=== PATIENT | female | born 2005 | race Caucasian/White ===

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

== ENCOUNTER 2024-01-19 19:01 | Emergency (ER) | payer OTHER, SELFPAY ==
[2024-01-19 19:12] VITALS: BP 142/80; PULSE 80; RESP 18; TEMP 36.5; O2SAT 100
--- NOTE | 2024-01-19 19:16 | ED.GENADULT ---
HPI - General Adult General Chief complaint: Upper Respiratory Infection Stated complaint: cough,sneeze,sinus pressure,headache Time Seen by Provider: 01/19/24 19:16 Source: patient Mode of arrival: ambulatory Limitations: no limitations History of Present Illness HPI narrative: 18-year-old female patient presents to the [facility] with complaints of cold symptoms for the past 2 days. Patient states she has had severe congestion, runny nose, cough and just overall not feeling well. Denies fevers that she is aware of but states she has had some body aches and chills. Related Data Home Medications Medication Instructions Recorded Confirmed drospirenone 3 mg-ethinyl 1 tablet PO DAILY 11/03/21 01/19/24 estradiol 0.02 mg tablet escitalopram oxalate 20 mg tablet 20 mg PO DAILY 01/19/24 01/19/24 fexofenadine 180 mg tablet 180 mg PO DAILY 01/19/24 01/19/24 Allergies Allergy/AdvReac Type Severity Reaction Status Date / Time peanut Allergy Severe ANAPHALAXIS Verified 01/19/24 19:07 loratadine [From Claritin] AdvReac Mild Rash Verified 01/19/24 19:07 Penicillins AdvReac Mild HIVES/ITCHI Verified 01/19/24 19:07 NG PEANUT BUTTER Allergy Severe ANAPHYLAXIS Uncoded 01/19/24 19:07 PECANS Allergy Severe ANAPHYLAXIS Uncoded 01/19/24 19:07 Review of Systems Review of Systems: CONSTITUTIONAL: Denies fever, Positive body aches and chills, or sweats. EYES: Denies visual changes, redness, or discharge. ENT: positive rhinorrhea, congestion, sore throat, and otalgia. CARDIOVASCULAR: Denies chest pain, palpitations, or edema. RESPIRATORY: positive cough denies dyspnea. GASTROINTESTINAL: Denies abdominal pain, nausea, vomiting, or diarrhea. GENITOURINARY: Denies dysuria or hematuria. SKIN: Denies rash or itching. MUSCULOSKELETAL: Denies back pain, joint pain, or myalgia. NEUROLOGIC: Denies headache, numbness, or weakness. PSYCHIATRIC: Denies anxiety or depression. [facility] Past Medical History Medical History Eczema Surgical History Surgical History History of tonsillectomy and adenoidectomy Family History Family History Grandparent Hypertension Heart disease Social History Social History Smoking status: Never smoker Alcohol intake: never Substance use: never Living arrangements: with family Occupation/Education: student Gender identity (if verbalized by the patient): Female Comments At the time of my signature I agree with nursing past medical history, surgical, social, and family history. There is no relevant family history pertinent to the presenting complaint. Exam Narrative: GENERAL: ill-appearing, well-nourished, and in no acute distress. HEAD: Normocephalic, atraumatic. EYES: PERRLA and EOMI. ENT: Nares clear, no rhinorrhea or epistaxis. Mucous membranes moist. posterior pharynx with no erythema, tonsillar enlargement, exudates or lesions present. Bilateral TMs are clear no erythema or foreign bodies the canal. NECK: Supple. No lymphadenopathy CHEST: Clear to auscultation. No respiratory distress. HEART: Regular rate and rhythm. No murmur heard. Normal peripheral pulses. ABDOMEN: Soft, nontender, nondistended, normal active bowel sounds. EXTREMITIES: Normal range of motion. No edema. SKIN: Warm, dry, no rash. NEURO: No focal deficits. Alert and oriented x3. Course Course Level of Care: Express Care Visit Vital Signs Vital signs: Vital Signs Temperature 36.5 C 01/19/24 19:12 Pulse Rate 80 01/19/24 19:12 Respiratory Rate 18 01/19/24 19:12 Blood Pressure 142/80 H 01/19/24 19:12 Pulse Oximetry 100 01/19/24 19:12 Oxygen Delivery Room Air 01/19/24 19:12 Temperature 36.5 C 01/19/24 19:12 Pulse Rate 80 01/19/24 19:12 Respiratory Rate
== END 2024-01-19 19:23 | disposition home or self-care (01) ==
PROVIDERS: Emergency Provider Nurse Practitioner Family; PCP Physician Assistant
DX: U07.1 COVID-19 (principal)
CPT/HCPCS: 87426; 99212; G0463

== ENCOUNTER 2024-03-30 18:24 | Emergency (ER) | payer OTHER, SELFPAY ==
--- NOTE | ~2024-03-30 | XR_ITS ---
XR chest 2V Ordering provider: Rich Saul APRN History: 18 years Female with . cough/sob/chest tightness . Comparison: March 11, 2013 FINDINGS: MEDIASTINUM: The cardiac silhouette is not enlarged. LUNGS: No infiltrates, effusions or pneumothorax. Prominent markings in the perihilar and lower lobe areas suggestive of bronchiolitis. Early bronchopneumonia is not excluded. OTHER: No free air under the diaphragm. IMPRESSION: Bronchiolitis with possible early bronchopneumonia in the lower lobes. Reviewed, dictated and finalized at location A.
--- NOTE | 2024-03-30 18:25 | ED.CHESTPAIN ---
HPI - Chest Pain General Chief Complaint: Upper Respiratory Infection Stated Complaint: chest pain / SOB / cough Time Seen by Provider: 03/30/24 18:25 Source: patient Mode of arrival: ambulatory Limitations: no limitations History of Present Illness HPI narrative: Michelle is a 18-year-old female patient presenting to the clinic today with complaints of shortness of breath, cough, and chest tightness x3 days. She reports no known fever or chills. History of asthma when she was a child. Cough is productive but she does not know the color of the mucus. States she just stop smoking ?vaping? Related Data Home Medications Medication Instructions Recorded Confirmed drospirenone 3 mg-ethinyl 1 tablet PO DAILY 11/03/21 03/30/24 estradiol 0.02 mg tablet escitalopram oxalate 20 mg tablet 20 mg PO DAILY 01/19/24 03/30/24 fexofenadine 180 mg tablet 180 mg PO DAILY 01/19/24 03/30/24 Allergies Allergy/AdvReac Type Severity Reaction Status Date / Time peanut Allergy Severe ANAPHALAXIS Verified 03/30/24 18:35 loratadine [From Claritin] AdvReac Mild Rash Verified 03/30/24 18:35 Penicillins AdvReac Mild HIVES/ITCHI Verified 03/30/24 18:35 NG PEANUT BUTTER Allergy Severe ANAPHYLAXIS Uncoded 01/19/24 19:07 PECANS Allergy Severe ANAPHYLAXIS Uncoded 01/19/24 19:07 Review of Systems Review of Systems: Pertinent positives per HPI. Patient denies any fever, chills, rash, headache, visual changes, dizziness, palpitations, nausea, vomiting, diarrhea, constipation, abdominal pain, or any urinary issues. [facility] Past Medical History Medical History Eczema Surgical History Surgical History History of tonsillectomy and adenoidectomy Family History Family History Grandparent Hypertension Heart disease Social History Social History Smoking status: Never smoker Alcohol intake: never Substance use: never Living arrangements: with family Occupation/Education: student Gender identity (if verbalized by the patient): Female Comments At the time of my signature, I reviewed and agree with the nursing past medical, surgical, social, and family history. There is no relevant family history pertinent to the patient complaint. Exam Narrative: General: Well-developed, obese, in no apparent distress Head: Normocephalic, atraumatic Eyes: Pupils equally round and reactive to light bilaterally, EOM intact, sclera and conjunctive clear, no discharge, lids normal Ears: TMs intact and clear, ear canals clear, no drainage, grossly hearing normal. Nose: Nares patent, clear nasal discharge, no inflammation, no sinus tenderness. Mouth: Oral pharynx without lesions or masses, good dentition, MMM. Neck: Supple, trachea midline, no enlargement of anterior or posterior cervical nodes, no thyroid masses or goiter palpable. Cardio: Regular rate and rhythm, s1 and s2 normal, no murmur appreciated. Resp: Lung sounds diminished in the bases, no rhonchi, rales, wheezing or rubs Course Course Emergency Course: Portions of this record may have been created with voice recognition software. Level of Care: Express Care Visit Vital Signs Vital signs: Vital signs reviewed MDM - Chest Pain MDM Narrative Medical decision making narrative: At the time of visit patient is resting comfortably on the exam table. Patient appears to be nontoxic. Diagnostics: Chest x-ray shows bronchiolitis versus early bronchial pneumonia Plan: I suspect patient has bronchiolitis with possible early bronchopneumonia. Prescription for Levaquin, prednisone, and albuterol inhaler was sent to the pharmacy. Supportive measures were discussed with the patient and they voiced understanding discharge instructions and agrees to treatment plan.
[2024-03-30 18:35] VITALS: BP 132/67; PULSE 103; RESP 18; TEMP 36.4; O2SAT 100
== END 2024-03-30 19:11 | disposition home or self-care (01) ==
PROVIDERS: Emergency Provider Nurse Practitioner Family; PCP Physician Assistant
DX: J40 Bronchitis, not specified as acute or chronic (principal); J18.0 Bronchopneumonia, unspecified organism; Z87.891 Personal history of nicotine dependence
CPT/HCPCS: 71046; 99213; G0463

== ENCOUNTER 2024-10-22 08:10 | Emergency (ER) | payer OTHER, SELFPAY ==
--- OUTSIDE RECORDS SUMMARY | 2024-10-22 08:17 | XMS_ITS | Encounter Summary ---
Author Organization [facility] Address [address] [place] [address] Care Team Providers Care Traffic Workforce Representative Name Role Phone Imtiaz Bennett MD Primary Care Provider Encounter Details Date Type Department Care Team (Late st Contact Info) Description 01/15/2020 Telephone [facility] Pediatrics - [address] [address] Desi Valle MD [address] [place] [id number] Social History Tobacco Use Types Packs/Day Years Used Date Smoking Tobacco: Passive Smo ke Exposure - Never Smoker Smokeless Tobacco: Never Alcohol Use Standard Drinks/Week Comments No 0 (1 standard drink = 0.6 oz pur e alcohol) Comments No Sex and Gender Information Value Date Recorded Sex Assigned at Not on file Legal Sex Female 5:44 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 No / Unsure 12/31/2019 8:27 AM CDT documented as of this encounter Miscellaneous Notes * Telephone Encounter - Asim Jin - 01/15/2020 4:30 PM CDT Mom called back to confirm pt's Telemed appt this coming Thursday 01/18 at 12:[address] Valle. Called Mom back and confirmed. Informed her that instructions were sent to her 7/22, and they should detail everything she needs to know about setting up the appt. Mom expressed understanding. documented in this encounter Plan of Treatment Not on file documented as of this encounter Visit Diagnoses Not on filedocumented in this encounter Additional Health Concerns Infection Onset Date Last Indicated Resolved Time COVID-19 Under Investigation 02/22/2020 02/24/2020 02/24/2020 7:07 PM CDT documented as of this encounter Care Teams Traffic Workforce Representative Relationship Specialty Start Date End Date Imtiaz Bennett MD [address] [place] [id number] PCP - General Pediatrics 07/22/19 documented as of this encounter
--- OUTSIDE RECORDS SUMMARY | 2024-10-22 08:17 | XMS_ITS | Clinical Summary ---
Author Organization 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 Gender Identity Not on file Sexual Orientation Not on file Plan of Treatment Health Maintenance Due Date Last Done Comments Hepatitis C Virus (HCV) Screening 2004 Meningococcal B Immunization (1 of 2 - Standard) 2020 Influenza Immunization (#1) 02/10/202409/2019, 04/04/2017, 05/27/2014, Additional history exists SARS-COV-2 Immunization ( season) 2024 Respiratory Syncytial Virus (RSV) Immunization (Adult) (1 - 1-dose 75+ series) 12/20/2079 Hepatitis B Immunization Completed 006, 04/24/2005, 02/22/2005, Additional history exists Pneumococcal Immunization Combined Aged Out 01/29/2007, 06/22/2005, 04/24/2005, Additional history exists No longer eligible based on patient's age to complete this topic Hepatitis A Immunization Discontinued 12/10/2008, 12/10 Measles Mumps Rubella (MMR) Immunization Discontinued 02/01/2010, 01/29/2007 Polio (IPV) Immunization Discontinued 010, 06/22/2005, 04/24/2005, Additional history exists Varicella Immunization Discontinued 02/01/2010, 2005 DTaP/Tdap/Td Immunization Discontinued 2015, 02/01/2010, 01/29/2007, Additional history exists Human Papillomavirus (HPV) Immunization Completed 12/28/2015, 05/27/2014 Meningococcal Immunization (ACWY) Aged Out 12/28/2015 No longer eligible based on patient's age to complete this topic TdaP Immunization Completed 12/28/2015 Rotavirus Immunization Aged Out No lo nger eligible based on patient's age to complete this topic
--- OUTSIDE RECORDS SUMMARY | 2024-10-22 08:17 | XMS_ITS | Encounter Summary ---
Author Organization [facility] Address [address] [place] [address] Care Team Providers Care Sorting Machine Operator Name Role Phone Imtiaz Bennett MD Primary Care Provider [phone] Reason for Visit * Reason Onset Date Comments Scheduling 08/22/2021 Encounter Details Date Type Department Care Team (Late st Contact Info) Description 08/22/2021 Telephone [facility] Pediatrics - [address] [phone] Colin Garcia MD [address] [place] [phone] Scheduling Social History Tobacco Use Types Packs/Day Years Used Date Smoking Tobacco: Never Smokeless Tobacco: Never Alcohol Use Standard Drinks/Week Comments Not Asked 0 (1 standard drink = 0.6 oz pur e alcohol) Comments No Sex and Gender Information Value Date Recorded Sex Assigned at Not on file 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 Answer Date of Assessment Author No 02/26/2020 11:37 AM Crissy Reed RN * Is person blind or have serious difficulty seeing? Answer Date of Assessment Author No 02/26/2020 11:37 AM Crissy Reed RN * Does person have serious difficulty walking/climbing stairs? Answer Date of Assessment Author No 02/26/2020 11:37 AM Crissy Reed RN * Does person have difficulty dressing/bathing? Answer Date of Assessment Author No 02/26/2020 11:37 AM CDT Crissy Hoang RN * Does person have difficulty doing errands alone? Answer Date of Assessment Author No 02/26/2020 11:37 AM CDT Crissy Hoang RN documented as of this encounter Mental Status * Does person have difficulty concentrating/remembering/making decisions? Answer Entry Date Author No 02/26/2020 11:37 AM CDT Crissy Hoang RN documented in this encounter Miscellaneous Notes * Telephone Encounter - Bee Talamantes RN - 08/22/2021 10:31 AM CDT Mom called requesting an appointment. Appointment was for Bariatrics not GI. Forwarded mom to correct department. * Telephone Encounter - Jay Jay Holm - 08/22/2021 10:10 AM CDT Mom called asking why no one has called to schedule next appointment. There is no GI doctor on chart. Please call to find out what mom need to do. documented in this encounter Plan of Treatment Not on file documented as of this encounter Visit Diagnoses Not on filedocumented in this encounter Care Teams Sorting Machine Operator Relationship Specialty Start Date End Date Imtiaz Bennett MD [address] [place] [address] PCP - General Pediatrics 07/22/19 documented as of this encounter
--- OUTSIDE RECORDS SUMMARY | 2024-10-22 08:17 | XMS_ITS | Clinical Summary ---
Author Organization [facility] Address [address] [place] [address] Care Team Providers Care Staffing Specialist Name Role Phone Unavailable Primary Care Provider Unavailabl e Social History Tobacco Use Types Packs/Day Years Used Date Smoking Tobacco: Never Assessed Comments Unknown Sex and Gender Information Value Date Recorded Sex Assigned at Not on file Legal Sex Female 5:16 PM CDT Gender Identity Not on file Sexual Orientation Not on file Plan of Treatment Upcoming Encounters Date Type Department Care Team ([facility] Contact Info) Description 11/11/2024 1:00 PM CDT Office Visit [facility] - [place] [address] [place] [phone] Aggie Sandoval MD [address] [place] [phone] Health Maintenance Due Date Last Done Comments Annual Physical 12/20/2007 HPV Vaccines (1 - 3-dose series) 12/20/2019 Meningococcal B Vaccine (1 o f 2 - Standard) 2020 Hepatitis C 2022 DTaP, Tdap and Td Vaccines ( 1 - Tdap) 12/20/2023 Hepatitis B Vaccines (1 of 3 - 19+ 3-dose series) 12/20/2023 COVID-19 Vaccine ( - 2023-2 5 season) 2024 Meningococcal Vaccine Aged Out No sima sindi eligible based on patient's age to complete this topic Pneumococcal Vaccine: Pediat rics (0 to 5 Years) and At-Risk Patients (6 to 49 Years) Aged Out No longer eligible b ased on patient's age to complete this topic RSV Immunizations Under 20 Months Aged Out No longer eligible based on patient's age to complete this topic Insurance [employer]
--- OUTSIDE RECORDS SUMMARY | 2024-10-22 08:17 | XMS_ITS | Clinical Summary ---
Author Organization [facility] Address [address] [place] [address] Care Team Providers Care Paper Products Machine Operator Name Role Phone Imtiaz Bennett MD Primary Care Provider Source Comments [facility],non-owned Affiliates and Associated Physician Practices is amultiple site organization consisting of ambulatory clinics and hospital sitesin [place], [place], [place] and [place]. This disclosure is being madepursuant to the Care Everywhere program and may not contain all information available regarding this patient. Last updated 18.[facility] Allergies Active Allergy Reactions Criticality Noted Date Comments Loratadine Urticaria Medium 05/21/2019 Peanut-Derived Anaphylaxis High 09/21/2010 All tree nuts Penicillins Urticaria Medium 09/22/2010 Medications * This document contains information received from the source organization and may not represent a complete record from that organization. * Be aware that medications may not be up to date on this document. Alwaysverify current medications with the patient. EPINEPHrine (EPIPEN JR 2-CATRACHITO IJ) by Injection route. Active triamcinolone acetonide (KENALOG) 0.1 % cream Apply to affected area 3 times daily Active drospirenone-ethi nyl estradiol (YUMI) 3-0.02 MG tabletIndications :Acne, unspecified acne type Take 1 tablet by mouth once daily 1 packet 1 9 Active fexofenadine (SANTINO) 60 MG tablet Take 60 mg by mouth 2 times daily Active Multiple Vitamins-Minerals (WOMENS MULTIVITAMIN PLUS PO) Active Active Problems Problem Noted Date Diagnosed Date Migraine with aura 08/21/2018 Overview (01/07/2019): 08/21/18 daily frontal SHU, weekly with sensitivity to light/sound and emesis; rec Neurology eval 01/06/19 no interval Neurol eval - discussed with mom who is not convinced pt has migraines (no sx for many months) - neuro consult placed Morbid obesity with acanthosis nigricans 019 Overview (01/06/2019): 08/21/18 neck, AC fossae; metabolic syndrome phenotype, BMI 37.88 kg/(m^2); anticipatory guidance; low glycemic diet 01/06/19 BMI 38.95 kg/(m^2) Acne 01/22/2014 Overview (01/28/2019): perimenarchal December 2013; inflammatory & comedonal; face/chest/back 01/22/14 mild, rec BPO wash BID 08/21/18 interval worsening on face>back/trunk with PIPA; S/P clinda gel + MCN QD (per Dr. Bennett); rec OTC adapalene + Yumi 01/02/19 improved on Yumi; cont + clinda/adapalene, BP wash; Bariatric Surgery clinic referral; F/U Senior Technical Business Analyst 01/07/19 called Mom to review interval HSU/need for Neurol eval; Mom reported that HSU/photophobia were exaggerated, stressed the risks of Yumi and importance of Neurol eval 01/28/19 RF Yumi pending sched Senior Technical Business Analyst eval for additional Yumi menarche age 10, menses Q mo Molluscum contagiosum 01/22/2014 Overview (01/06/2019): Onset November 2013; upper legs and lower abdomen; s/p 1 mo mupirocin BID + Z Pack X 2 (last dose 01/19/14) 01/22/14 tx cantharidin (#11) 08/21/18 resolved Atopic eczema 01/22/2014 Overview (01/06/2019): onset infancy controlled with mometasone as needed 01/22/14 clear 08/21/18 resolved Family History Medical History Relation Name Comments Hyperlipidemia Father Diabetes - Type 2 Maternal Grandfather Hypertension Maternal Grandfather Other Maternal Grandfather Eczema Mother Hyperlipidemia Mother Hypertension Mother Anesthesia Reaction Neg Hx Asthma Neg Hx Bleeding Disorders Neg Hx Cancer - Skin, Melanoma Neg Hx Cancer - Skin, Non Melanoma Neg Hx Childhood Hearing Disorder Neg Hx Psoriasis Neg Hx Relation Name Status Comments Father Maternal Grandfather Mother Social History Tobacco Use Types Packs/Day Years Used Date Smoking Tobacco: Never Smokeless Tobacco: Never Alcohol Use Standard Drinks/Week Comments Not Asked 0 (1 standard drink = 0.6 oz pur e alcohol) Comments No Sex and Gender Information Value Date Recorded Sex Assigned at Not on file Legal Sex Female 5:44 AM 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 Gender Identity Not on file Sexual Orientation Not on file Last Filed Vital Signs Vital Sign Reading Time Taken Comments Blood Pressure 114/64 12/28/2020 9:21 AM CDT Pulse 103 02/26/2020 11:45 AM CDT Temperature 37.1 C (98.8 F) 02/26/2020 11:25 AM CDT Respiratory Rate 14 02/26/2020 11:4 5 AM CDT Oxygen Saturation 98% 02/26/2020 11: 45 AM CDT Inhaled Oxygen Concentration 100% 11:25 AM CDT Weight 129.3 kg (285 lb 0.9 oz) 12/28/2020 9:21 AM CDT Height 165.3 cm (5' 5.08 ) 12/28/2020 9:21 AM CD T Body Mass Index 47.32 12/28/2020 9:21 AM CDT Body Mass Index Percentile 99.98% 12/28/2020 9:2 1 AM CDT Growth Chart: CDC (Girls, 2- 20 Years) Plan of Treatment Health Maintenance Due Date Last Done Comments HIV SCREENING 12/20/2019 HPV VACCINE (1 - 3-dose series) 12/20/2019 CHLAMYDIA/GONORRHEA SCREENING 2020 MENINGOCOCCAL (Group B) VACC INE SHARED DECISION-MAKING (1 of 2 - Standard) 2020 HEPATITIS C SCREENING 12/15/2022 DTAP/TDAP/TD VACCINES (1 - Tdap) 12/20/2023 HEPATITIS B VACCINE (1 of 3 - 19+ 3-dose series) 12/20/2023 COVID-19 VACCINE (1 - 2023-2 5 season) 2024 DEPRESSION SCREENING 06/11/2024 INFLUENZA VACCINE (Season Ended) 2025 ZOSTER VACCINE (1 of 2) 2054 HIB VACCINE Aged Out No longer eligi ble based on patient's age to complete this topic MENINGOCOCCAL GROUPS A/C/Y/W VACCINE Aged Out No longer eligible b ased on patient's age to complete this topic PNEUMOCOCCAL VACCINE Aged Out No long er eligible based on patient's age to complete this topic Insurance MEDICAID - [place] [id number] [id number] Care Teams Paper Products Machine Operator Relationship Specialty Start Date End Date Imtiaz Bennett MD [address] [place] [address] PCP - General Pediatrics 07/22/19
[2024-10-22 08:24] VITALS: BP 146/55; PULSE 82; RESP 20; TEMP 36.3; O2SAT 100
--- NOTE | 2024-10-22 08:33 | ED.URI ---
HPI - URI/Sore Throat General Chief Complaint: Upper Respiratory Infection Stated Complaint: throat pain/congestion Time Seen by Provider: 10/22/24 08:36 Source: patient, RN notes reviewed and old records reviewed Mode of arrival: ambulatory Limitations: no limitations History of Present Illness HPI Narrative: 18-year-old female presents to [facility] with complaints of sore throat for the past 2 days with increased symptoms last night. Patient reports that she has not had any fevers, does state some nasal congestion and drainage, reports no cough or any shortness of breath. Patient has been using cough drops to soothe throat, no OTC antihistamine or any Tylenol or Ibuprofen taken for discomfort. Patient reports that some of her co-workers have had strep throat lately. MD elicited complaint: sore throat, rhinorrhea and nasal congestion Pertinent past history: other (strep throat and has had tonsillectomy) Onset (ago): day(s) (2 days) Pain scale (0-10): 4 Able to tolerate fluids by mouth: Yes Treatments prior to arrival: other (cough drops) Related Data Home Medications Medication Instructions Recorded Confirmed Last Taken Type drospirenone 3 mg-ethinyl 1 tablet PO DAILY 11/03/21 03/30/24 Unknown History estradiol 0.02 mg tablet escitalopram oxalate 20 mg tablet 20 mg PO DAILY 01/19/24 03/30/24 Unknown History rosuvastatin 20 mg tablet mg 10/22/24 Unknown History Allergies Allergy/AdvReac Type Severity Reaction Status Date / Time peanut Allergy Severe ANAPHALAXIS Verified 10/22/24 08:25 loratadine (From Claritin) AdvReac Mild Rash Verified 10/22/24 08:25 Penicillins AdvReac Mild HIVES/ITCHI Verified 10/22/24 08:25 NG PEANUT BUTTER Allergy Severe ANAPHYLAXIS Uncoded 10/22/24 08:25 PECANS Allergy Severe ANAPHYLAXIS Uncoded 10/22/24 08:25 Review of Systems Review of Systems: CONSTITUTIONAL: Denies malaise, chills, sweats, or fever. EYES: Denies visual changes, redness, or discharge. ENT: Reports rhinorrhea, congestion, no sinus pain, no otalgia and positive for sore throat. CARDIOVASCULAR: Denies chest pain, palpitations, or edema. RESPIRATORY: Reports no cough. Denies dyspnea. GASTROINTESTINAL: Denies abdominal pain, nausea, vomiting, diarrhea SKIN: Denies rash or itching. MUSCULOSKELETAL: Denies myalgia. NEUROLOGIC: Denies headache. All systems reviewed & are unremarkable except as noted in HPI and below PMFSH Past Medical History Medical History (Updated 10/22/24 @ 08:53 by Michelle Holguin NP) History of sinus problem History of strep sore throat Eczema Surgical History Surgical History History of tonsillectomy and adenoidectomy Family History Family History Grandparent Hypertension Heart disease Social History Social History Smoking status: Never smoker Alcohol intake: never Substance use: never Living arrangements: with family Occupation/Education: student Gender identity (if verbalized by the patient): Female Comments At time of signature, agree with nursing past medical, surgical, social and family history. There is no relevant family history pertinent to the presenting complaint Exam Narrative: GENERAL: Well-appearing, well-nourished,obese and in no acute distress. HEAD: Normocephalic EYES: PERRLA, conjunctivae clear ENT: Nares clear, turbinates edematous and erythematous, clear discharge. Mucous membranes moist. TM pearly pinzon with dull light reflex bilaterally; no tragal tenderness. Oropharynx erythematous without lesions. Tonsils not present and throat without exudate, no drooling, no hoarseness, no trismus, uvula midline.post nasal drainage noted NECK: Supple. No lymphadenopathy CHEST: Clear to auscultation, breath sounds equal. No wheezing, rhonchi, rales, or stridor. No respiratory distress, speaks in full sentences.no cough noted, SAO2 100% on room air HEART: Regular rate and rhythm. No murmur heard. SKIN: Warm, dry, no rash. NEURO: Alert and oriented x3. PSYCH: Normal mood and affect Course Course Emergency Course: Patient is aware of diagnosis, understands and agrees to treatment plan. Anticipatory guidance given. Patient agrees to follow-up as directed and is aware of reasons to seek care at the emergency department. Portions of this record may have been created with voice recognition software Level of Care: Express Care Visit Vital Signs Vital signs: Vital Signs Temperature 36.3 C L 10/22/24 08:24 Pulse Rate 82 10/22/24 08:24 Respiratory Rate 20 10/22/24 08:24 Blood Pressure 146/55 H 10/22/24 08:24 Pulse Oximetry 100 10/22/24 08:24 Oxygen Delivery Room Air 10/22/24 08:24 Temperature 36.3 C L 10/22/24 08:24 Pulse Rate 82 10/22/24 08:24 Respiratory Rate 20 10/22/24 08:24 Blood Pressure 146/55 H 10/22/24 08:24 Pulse Oximetry 100 10/22/24 08:24 Oxygen Delivery Room Air 10/22/24 08:24 Reviewed MDM - URI/Sore Throat MDM Narrative Medical decision making narrative: Differential diagnosis considered: [place] virus, strep pharyngitis, allergic rhinitis, upper respiratory tract infection, sinusitis, rhinosinusitis, nasopharyngitis. viral pharyngitis, otitis media, otitis externa, pneumonia, bronchitis, viral cough syndrome, viral syndrome, and influenza. Exam findings show no acute concerns or changes; patient is non-toxic appearing and is in no distress. Patient is appropriate for outpatient treatment and follow-up. Differential Diagnosis Differential diagnosis: Likely upper respiratory infection, sinusitis, viral infection, pharyngitis and other (strep pharyngitis) Medical Records Attestation: I reviewed the patient's medical records. Lab Data Attestation: I reviewed the patient's lab results. Lab results narrative: strep screen negative, culture sent Critical Care Time Critical Care Time Critical Care Time: No Discharge Plan Discharge Clinical Impression: Upper respiratory infection Qualifiers: URI type: unspecified URI Qualified Code(s): J06.9 - Acute upper respiratory infection, unspecified Pharyngitis Qualifiers: Pharyngitis/tonsillitis etiology: unspecified etiology Qualified Code(s): J02.9 - Acute pharyngitis, unspecified Patient Disposition: Home Condition: Stable Instructions: Pharyngitis (ED), Upper Respiratory Infection (ED) Additional Instructions: Increase fluids especially juices and water [id number] cough and cold medicine of your choice for your symptoms Zyrtec daily heat to the face 20-30 minutes 4-6 times a day for pain Salt water gargles, throat lozenges or throat sprays as desired monitor for any fevers Tylenol for any fever or pain Your strep test today was negative. A throat culture will be sent to the laboratory for further testing. IF the test is positive, you will receive a phone call within 48 hours and an appropriate antibiotic will be initiated at that time. If your symptoms persist, change or worsen significantly before you can contact your personal physician then please, without delay, go to the emergency department for further evaluation. Follow-up with PCP in 7-10 days or sooner if needed Follow up with PCP soon in regards to your blood pressure which is elevated above threshold for referral. Blood pressure above 120/80 may indicate pre-hypertension. 146/55 Patient Language: Croatian Prescriptions: New cetirizine [Zyrtec] 10 mg tablet 10 mg PO DAILY Qty: 30 0RF No Action drospirenone-ethinyl estradiol 3-0.02 mg tablet 1 tablet PO DAILY escitalopram oxalate 20 mg tablet 20 mg PO DAILY rosuvastatin 20 mg tablet Follow-up/Referrals: Emiliano,SHANA Guthrie [Primary Care Provider] - Time of Disposition: 08:48 Quality [place] Coma Scale Eyes: Open Verbal: Oriented and Alert Motor: Follows Commands [place] Coma Total Score: 15
[2024-10-22 08:48] LABS: EDSTREPNEGPOS1 Negative (Negative)
== END 2024-10-22 08:56 | disposition home or self-care (01) ==
PROVIDERS: Emergency Provider Registered Nurse; PCP Physician Assistant
DX: J06.9 Acute upper respiratory infection, unspecified (principal); J02.9 Acute pharyngitis, unspecified
CPT/HCPCS: 87081; 87880; 99213; G0463

== ENCOUNTER 2025-04-27 18:02 | Emergency (ER) | payer OTHER, SELFPAY ==
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
[2025-04-27 18:13] VITALS: BP 143/79; PULSE 93; RESP 18; TEMP 36.4; O2SAT 100
== END 2025-04-27 18:25 | disposition home or self-care (01) ==
PROVIDERS: Emergency Provider Nurse Practitioner; PCP Student in an Organized Health Care Education/Training Program
DX: J20.8 Acute bronchitis due to other specified organisms (principal)
CPT/HCPCS: 99213; G0463

== ENCOUNTER 2025-04-28 21:59 | Emergency (ER) | payer OTHER, SELFPAY ==
--- NOTE | ~2025-04-28 | XR_ITS ---
Examination: XR chest 2V Clinical History: heart palpitations Comparison: 03/30/2024 Technique: PA and Lateral Findings: Cardiomediastinal silhouette normal size and configuration. Lungs clear. No acute bony abnormality. IMPRESSION: 1. No acute cardiopulmonary findings. Reviewed, dictated and finalized at location [employer]. [employer]
[2025-04-28 22:02] VITALS: BP 127/74; PULSE 125; RESP 24; TEMP 36.2; O2SAT 96
[2025-04-29] VITALS (8 sets, daily range): BP systolic 116–140; BP diastolic 61–83; PULSE 103–120; RESP 15–23; O2SAT 98–100
--- NOTE | 2025-04-29 00:27 | ECG_ITS ---
Test Date: 2025-04-29 00:41:47 Measurements Intervals [place] Rate: 109 P: 59 [place]: 130 QRS: 28 QRSD: 82 T: 26 QT: 330 QTc: 446 Interpretive Statements SINUS TACHYCARDIA OTHERWISE NORMAL ECG No previous ECG available for comparison Electronically Signed On 04-29-2025 07:45:40 [employer]END[employer] by Víctor Narvaez M.D.
--- NOTE | 2025-04-29 00:49 | ED.SOB ---
HPI - SOB/Dyspnea General Chief Complaint: Shortness of Breath/Dyspnea Stated Complaint: Bronchitis Time Seen by Provider: 04/29/25 00:21 History of Present Illness HPI Narrative: Pt is a 19-year-old female who presents to the ER with shortness of breath and heart palpitations. She reports she was at urgent care yesterday and diagnosed with bronchitis. Patient reports she took her 1st dose of prednisone this morning and has felt ill ever since. She reports she has taken oral steroids in the past and not had this reaction. Patient endorses sore throat, congestion, and wheezing. She endorses a history of asthma and takes oral control pills. Patient denies any urinary symptoms, recent fevers, headaches, or lower extremity edema. Related Data Home Medications ?Medication ?Instructions ?Recorded ?Confirmed ?Last Taken ?Type drospirenone 3 mg-ethinyl 1 tablet PO DAILY 11/03/21 03/30/24 Unknown History estradiol 0.02 mg tablet escitalopram oxalate 20 mg tablet 20 mg PO DAILY 01/19/24 03/30/24 Unknown History levocetirizine 5 mg tablet (Xyzal) 2.5 mg PO 2XW 04/27/25 04/27/25 Unknown History Allergies Allergy/AdvReac Type Severity Reaction Status Date / Time peanut Allergy Severe ANAPHALAXIS Verified 04/28/25 22:06 loratadine (From Claritin) Allergy Mild Rash Verified 04/28/25 22:06 Penicillins Allergy Mild HIVES/ITCHI Verified 04/28/25 22:06 NG Review of Systems Review of Systems: All systems reviewed & are unremarkable except as noted in HPI and below PMFSH Past Medical History Medical History History of sinus problem History of strep sore throat Eczema Surgical History Surgical History History of tonsillectomy and adenoidectomy Family History Family History Grandparent Hypertension Heart disease Social History Social History Smoking status: Never smoker Alcohol intake: never Substance use: never Living arrangements: with family Occupation/Education: student Gender identity (if verbalized by the patient): Female Exam Narrative: GENERAL: Well appearing, obese, non-toxic, in no acute distress. HEAD: Normocephalic, atraumatic. NECK: Supple. No adenopathy, no masses. RESPIRATORY: Airway patent, respirations nonlabored. Clear to auscultation bilaterally, no rales, rhonchi, wheezing. CARDIOVASCULAR: Tachycardia without murmurs, rubs, or gallops. Peripheral pulses 2+ and equal bilaterally. ABDOMINAL: Soft, nontender, nondistended, no hepatosplenomegaly. Normoactive BS. MUSCULOSKELETAL: Moves all extremities. Strength/ROM intact without gross deformities. SKIN: Warm, dry, normal color. No rashes. NEURO: A&O X3. Speech clear. Cranial nerves II-XII intact. No ataxic movements. PSYCHIATRIC: Appropriate mood and affect. Normal interaction. Course Vital Signs Vital signs: Vital Signs Temperature 36.2 C L 04/28/25 22:02 Pulse Rate 125 H 04/28/25 22:02 Respiratory Rate 24 H 04/28/25 22:02 Blood Pressure 127/74 04/28/25 22:02 Pulse Oximetry 96 04/28/25 22:02 Oxygen Delivery Room Air 04/28/25 22:02 Temperature 36.2 C L 04/28/25 22:02 Pulse Rate 120 H 04/29/25 02:42 Respiratory Rate 18 04/29/25 02:42 Blood Pressure 140/78 04/29/25 02:19 Pulse Oximetry 100 04/29/25 02:19 Oxygen Delivery Room Air 04/29/25 00:14 MDM - SOB/Dyspnea MDM Narrative Medical decision making narrative: Pt is a 19-year-old female who presents to the ER with shortness of breath and heart palpitations. She reports she was at urgent care yesterday and diagnosed with bronchitis. Patient reports she took her 1st dose of prednisone this morning and has felt ill ever since. She reports she has taken oral steroids in the past and not had this reaction. Patient endorses sore throat, congestion, and wheezing. She endorses a history of asthma and takes oral control pills. Patient denies any urinary symptoms, recent fevers, headaches, or lower extremity edema. Labs Ordered: CBC, CMP, UDS, UA, COVID/flu/RSV, troponin, PTT, INR, D-dimer, TSH, magnesium, lactic acid Imaging Ordered: Chest x-ray Medications Ordered: 1 L normal saline IV bolus, Macrobid PO, Toradol IV, duo neb Results: Patient's chest x-ray indicates no acute findings. Diagnosis: Bronchitis, urinary tract infection, reaction to prescription drug Patient Education/Shared MDM: It is assumed pt's symptoms are related to an upper respiratory infection and an adverse side effect of her prescription steroid use. Her heart rate has come down nicely during her ER visit after receiving IV fluids. Results of lab work and imaging shared with patient. She is requesting a DuoNeb administration to improve her breathing here in the ER. Patient also be given a dose of Toradol here in the ER for discomfort relief. She will be given a dose antibiotics here in the ER to treat a urinary tract infection. Patient strongly advised to maintain hydration status upon discharge and follow-up with her PCP as soon as possible further evaluation. It was advised pt refrain from continuing her Prednisone prescription. She will be discharged home with a prescription for Medrol Dosepak, Flonase, Zyrtec, and Macrobid. Pt advised to use oral steroids only if she needs them, otherwise she should stick to the Flonase and Zyrtec. Strict return precautions provided. Patient verbalized understanding and is in agreement with plan. Vital signs stable at time of discharge. All questions answered. Differential Diagnosis Differential diagnosis: Likely community acquired pneumonia, asthma with exacerbation and other (Bronchitis, urinary tract infection, reaction to prescribed medication) Lab Data Attestation: I reviewed the patient's lab results. 04/29/25 00:57 04/29/25 00:57 Labs: Lab Results 04/29/25 04/29/25 04/29/25 Range/Units 00:57 01:48 01:50 WBC 18.3 H (4.5-10.0) K/mm3 RBC 5.76 H (4.2-5.4) M/mm3 Hgb 13.9 (12.0-15.0) g/dL Hct 43.3 (37.0-47.0) % MCV 75.2 L (80-100) fl MCH 24.1 L (26-34) pg MCHC 32.1 (32-36) g/dl RDW 15.5 H (11.5-14.5) % Plt Count 427 H (150-375) k/mm3 MPV 9.8 (7.4-10.4) fl Immature Gran % (Auto) 0.7 H (0-0.5) % Neut % (Auto) 79.9 H (45.5-73.1) % Lymph % (Auto) 13.4 L (18.3-44.2) % [place] % (Auto) 5.6 (2.6-8.5) % Eos % (Auto) 0.2 (0-4.4) % Baso % (Auto) 0.2 (0.2-1.2) % Lymph # (Auto) 2.45 (0.9-3.2) K/mm3 [place] # (Auto) 1.0 H (0.1-0.6) K/mm3 Eos # (Auto) 0.0 (0-0.3) K/mm3 Baso # (Auto) 0.0 (0.0-0.1) K/mm3 Abs Immat Gran (auto) 0.12 H (0.00-0.031) K/mm3 Absolute Neuts (auto) 14.7 H (1.3-6.7) K/mm3 Absolute Nucleated RBC 0.000 (0.0-0.012) K/mm3 Nucleated RBC % 0.0 (0.0-0.2) % PT 13.4 (11.1-14.7) Seconds INR 1.0 APTT 37.7 H (22.3-36.8) Seconds D-Dimer 0.42 (<0.48) ug/mL Sodium 136 L (137-145) mmol/L Potassium 3.5 (3.4-5.0) mmol/L Chloride 101 (98-107) mmol/L Carbon Dioxide 22 (22-30) mmol/L Anion Gap 13 H (4-12) mmol/L BUN 8 (7-17) mg/dL Creatinine 0.55 L (0.7-1.0) mg/dL Estim Creat Clear Calc 195 ml/min Estimated GFR > 60 (59 - ) Glucose 112 H (65-110) mg/dL Lactic Acid 1.5 (0.7-2.0) mmol/L Calcium 10.3 H (8.4-10.2) mg/dL Magnesium 2.3 (1.6-2.3) mg/dL Total Bilirubin 0.4 (0.2-1.3) mg/dL AST 31 (14-36) U/L ALT 31 (6-35) U/L Alkaline Phosphatase 121 (38-126) U/L Troponin I < 0.012 (0.000-0.034) ng/mL Total Protein 9.1 H (6.3-8.2) g/dL Albumin 5.1 (3.5-5.1) g/dL TSH (Reflex) 1.130 (0.465-4.68) uIU/mL Urine Color Yellow (Yellow) Urine Appearance Clear (Clear) Urine pH 5.5 (5.0-9.0) Ur Specific [place] 1.023 (1.001-1.035) Urine Protein Negative (Negative) mg/dL Urine Glucose (UA) Negative (Negative) mg/dL Urine Ketones Trace H (Negative) mg/dL Ur Blood (Man) Negative (Negative) Urine Nitrate Negative (Negative) Urine Bilirubin Negative (Negative) Urine Urobilinogen 0.2 (<2.0) mg/dL Add Ur Microanalysis Reviewed Leukocyte Esterase Rfl Trace H (Negative) IKE/UL Urine RBC 0-2 (0-2) /hpf Urine WBC 6-10 H (0-3) /hpf Ur Squamous Epith Cells Few (Few) /hpf Urine Bacteria 2+ H /hpf Urine Casts 3-5 Hyaline Casts Present (None) /lpf POC Urine HCG, Qual Negative (Negative) Urine Opiates Screen Negative (Negative) Urine Methadone Screen Negative (Negative) Ur Barbiturates Screen Negative (Negative) Ur Phencyclidine Scrn Negative (Negative) Ur Amphetamine Screen Negative (Negative) U Benzodiazepines Scrn Negative (Negative) Urine Cocaine Screen Negative (Negative) U Cannabinoids Screen Negative (Negative) Influenza A (RT-PCR) Negative (Negative) Influenza B (RT-PCR) Negative (Negative) RSV (RT-PCR) Negative (Negative) SARS-CoV-2 RNA (RT-PCR) Negative (Negative) Imaging Data Attestation: I personally reviewed and interpreted this imaging study as follows: Radiologist's impression: No acute findings. Discharge Plan Discharge Clinical Impression: Bronchitis Adverse drug reaction Qualifiers: Encounter type: initial encounter Qualified Code(s): T50.905A - Adverse effect of unspecified drugs, medicaments and biological substances, initial encounter Urinary tract infection Qualifiers: Urinary tract infection type: acute cystitis Hematuria presence: without hematuria Qualified Code(s): N30.00 - Acute cystitis without hematuria Patient Disposition: Home Condition: Stable Instructions: Antibiotic Form, Urinary Tract Infection in Women (ED), Acute Bronchitis (ED) Additional Instructions: Please return to the ER with any worsening symptoms. Follow-up with primary care provider as soon as possible for re-evaluation. Take all medications as prescribed, including regularly scheduled medications. Refrain from using more of the Prednisone 50mg. Instead, you can take Flonase intranasal and Zyrtec. If your symptoms do not improve you may fill the prescription for a Medrol dose pack. Please remember to drink lots of water. Complete your full dose of antibiotics. Patient Language: Bangladeshi Prescriptions: New methylprednisolone [Medrol (Juwan)] 4 mg tablets,dose pack See Rx Instructions .ROUTE .COMPLEX Qty: 21 0RF Rx Instructions: for 6 days cetirizine [24Hour Allergy] 10 mg tablet 10 mg PO DAILY PRN (Reason: allergy symptoms) Qty: 30 0RF fluticasone propionate [Flonase Allergy Relief] 50 mcg/actuation spray,suspension 2 spray intranasal DAILY Qty: 16 0RF Rx Instructions: administer into each nostril nitrofurantoin monohyd/m-cryst [Macrobid] 100 mg capsule 100 mg PO Q12H 5 Days Qty: 10 0RF Rx Instructions: must administer with a meal/food No Action drospirenone-ethinyl estradiol 3-0.02 mg tablet 1 tablet PO DAILY escitalopram oxalate 20 mg tablet 20 mg PO DAILY levocetirizine [Xyzal] 5 mg tablet 2.5 mg PO 2XW prednisone 50 mg tablet 50 mg PO DAILY 5 Days Qty: 5 0RF albuterol sulfate [Ventolin HFA] 90 mcg/actuation HFA aerosol inhaler 1 inh inhalation QID PRN (Reason: shortness of breath or wheezing) Qty: 6.7 0RF Follow-up/Referrals: Lori,Aggie Leo MD [Primary Care Provider, Unknown] Stand Alone Forms: Work/School Release IP Time of Disposition: 03:02
[2025-04-29] MEDS: SODIUM CHLORIDE 0.9% IV 1,000 ML 999 ML IV CONT (00:57)
[2025-04-29 01:06] LABS: Hematocrit 43.3 % (37.0-47.0); Hemoglobin 13.9 g/dL (12.0-15.0); Immature Granulocyte Percent A 0.7 % (0-0.5); Lymphocytes Absolute Auto 2.45 K/mm3 (0.9-3.2); Mean Corpuscular HGB Conc 32.1 g/dl (32-36); Mean Corpuscular Hemoglobin 24.1 pg (26-34); Mean Corpuscular Volume 75.2 fl (80-100); Nucleated Red Blood Cells Absolute Auto 0.000 K/mm3 (0.0-0.012); Nucleated Red Blood Cells Perc 0.0 % (0.0-0.2); Platelet Count Result 427 k/mm3 (150-375); Red Blood Count 5.76 M/mm3 (4.2-5.4); White Blood Count 18.3 K/mm3 (4.5-10.0)
[2025-04-29 01:16] LABS: Albumin Level 5.1 g/dL (3.5-5.1); Carbon Dioxide 22 mmol/L (22-30)
--- NOTE | 2025-04-29 01:16 | PC.NURSE ---
pt unable to provide a urine sample at this time. Pt will call when she can.
[2025-04-29 01:18] LABS: INR 1.0; Prothrombin Time 13.4 Seconds (11.1-14.7)
[2025-04-29 01:22] LABS: Partial Thromboplastin Time 37.7 Seconds (22.3-36.8)
[2025-04-29 01:26] LABS: Troponin I < 0.012 ng/mL (0.000-0.034)
[2025-04-29 01:27] LABS: Alanine Aminotransferase 31 U/L (6-35); Alkaline Phosphatase 121 U/L (38-126); Anion Gap 13 mmol/L (4-12); Aspartate Amino Transferase 31 U/L (14-36); Bilirubin,Total 0.4 mg/dL (0.2-1.3); Blood Urea Nitrogen 8 mg/dL (7-17); Calcium 10.3 mg/dL (8.4-10.2); Chloride 101 mmol/L (98-107); Estimated CRCL calculation 195 ml/min; Estimated Glomerular Filt Rate > 60; Glucose 112 mg/dL (65-110); Magnesium 2.3 mg/dL (1.6-2.3); Potassium 3.5 mmol/L (3.4-5.0); Sodium 136 mmol/L (137-145); Total Protein 9.1 g/dL (6.3-8.2)
[2025-04-29 01:41] LABS: Influenza A QL RT-PCR Negative (Negative); Influenza B QL RT-PCR Negative (Negative); RSV RNA, RT-PCR Negative (Negative); SARS-CoV-2 RNA PCR Negative (Negative)
[2025-04-29 01:52] LABS: BEDSIDEPREGUCG Negative (Negative)
[2025-04-29 01:55] LABS: Thyroid Stimulating Hormone Reflex 1.130 uIU/mL (0.465-4.68)
[2025-04-29 02:14] LABS: Cannabinoid Screen Urine Negative (Negative)
[2025-04-29 02:21] LABS: Add Urine Microscopic? YES; Appearance Urine Clear (Clear); Glucose Urine UA Negative (Negative); Leukocyte Esterase Ur Trace LEU/UL (Negative); Need Manual Microscopic Reviewed; Nitrate Urine Negative (Negative); Specific Grav Ur 1.023 (1.001-1.035)
[2025-04-29] MEDS: IPRATROPIUM 0.5 MG/ALBUTEROL SULFATE 2.5 MG (BASE) AMPUL.NEB 3 ML INHALATION (02:33)
[2025-04-29] MEDS: NITROFURANTOIN MONOHYD MACROCR 100 MG CAP PO (02:38)
[2025-04-29] MEDS: KETOROLAC 15 MG/ML VIAL (*BKC) IV PUSH (02:38)
--- OUTSIDE RECORDS SUMMARY | 2025-04-29 05:08 | XMS_ITS | Encounter Summary ---
Author Organization [facility] Address [address] [place] [address] Care Team Providers Care Lumber Cutter Name Role Phone Imtiaz Bennett MD Primary Care Provider Reason for Visit * Reason Onset Date Comments Scheduling 08/22/2021 Encounter Details Date Type Department Care Team (Late st Contact Info) Description 08/22/2021 Telephone [facility] Pediatrics - [address] [id number] Colin Garcia MD [address] [place] [address] [phone] Scheduling Social History Tobacco Use Types Packs/Day Years Used Date Smoking Tobacco: Never Smokeless Tobacco: Never Alcohol Use Standard Drinks/Week Comments Not Asked 0 (1 standard drink = 0.6 oz pur e alcohol) Comments No Sex and Gender Information Value Date Recorded Sex Assigned at Not on file Legal Sex Female 5:[address] Gender Identity Not on file Sexual Orientation Not on file documented as of this encounter Functional Status * Is person deaf or have serious hearing difficulty? Answer Date of Assessment Author No 02/26/2020 11:37 AM CDT Crissy Hoang RN * Is person blind or have serious difficulty seeing? Answer Date of Assessment Author No 02/26/2020 11:37 AM CDT Crissy Hoang RN * Does person have serious difficulty walking/climbing stairs? Answer Date of Assessment Author No 02/26/2020 11:37 AM CDT Crissy Hoang RN * Does person have difficulty dressing/bathing? [...] on filedocumented in this encounter Care Teams Lumber Cutter Relationship Specialty Start Date End Date Imtiaz Bennett MD [address] [place] [id number] PCP - General Pediatrics 07/22/19 documented as of this encounter
--- OUTSIDE RECORDS SUMMARY | 2025-04-29 05:08 | XMS_ITS | Encounter Summary ---
Author Organization [facility] Address [address] [place] [address] Care Team Providers Care Circulation Assistant Name Role Phone Imtiaz Bennett MD Primary Care Provider [phone] Encounter Details Date Type Department Care Team (Late st Contact Info) Description 01/15/2020 Telephone [facility] - [address] [address] Desi Valle MD [address] [place] [id number] Social History Tobacco Use Types Packs/Day Years Used Date Smoking Tobacco: Passive Smo ke Exposure - Never Smoker Smokeless Tobacco: Never Alcohol Use Standard Drinks/Week Comments No 0 (1 standard drink = 0.6 oz pur e alcohol) Comments No Sex and Gender Information Value Date Recorded Sex Assigned at Not on file Legal Sex Female 5:44 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
--- OUTSIDE RECORDS SUMMARY | 2025-04-29 05:08 | XMS_ITS | Clinical Summary ---
Author Organization 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
--- OUTSIDE RECORDS SUMMARY | 2025-04-29 05:08 | XMS_ITS | Clinical Summary ---
Author Organization [facility] Address [address] [place] [address] Care Team Providers Care Set Up Mechanic Coil Winding Machines Name Role Phone Imtiaz Bennett MD Primary Care Provider [phone] Source Comments [facility],non-owned Affiliates and Associated Physician Practices is amultiple site organization consisting of ambulatory clinics and hospital sitesin [place], [place], [place] and [place]. This disclosure is being madepursuant to the Care Everywhere program and may not contain all information available regarding this patient. 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 Gender Identity Not on file Sexual Orientation [...] 9:21 AM CDT Height 165.3 cm (5' 5.08) 12/28/2020 9:21 AM CD T Body Mass Index 47.32 12/28/2020 9:21 AM CDT Plan of Treatment Health Maintenance Due Date Last Done Comments HIV SCREENING 12/20/2019 HPV VACCINE (1 - 3-dose series) 12/20/2019 CHLAMYDIA/GONORRHEA SCREENING 2020 MENINGOCOCCAL (Group B) VACC INE SHARED DECISION-MAKING (1 of 2 - Standard) 2020 HEPATITIS C SCREENING 12/15/2022 DTAP/TDAP/TD VACCINES (1 - Tdap) 12/20/2023 HEPATITIS B VACCINE (1 of 3 - 19+ 3-dose series) 12/20/2023 DEPRESSION SCREENING 06/11/2024 COVID-19 VACCINE (1 - 2023-2 5 season) 2025 INFLUENZA VACCINE (#1) 2025 ZOSTER VACCINE (1 of 2) 2054 HIB VACCINE Aged Out No longer eligi ble based on patient's age to complete this topic MENINGOCOCCAL GROUPS A/C/Y/W VACCINE Aged Out No longer eligible b ased on patient's age to complete this topic PNEUMOCOCCAL VACCINE Aged Out No long er eligible based on patient's age to complete this topic Insurance MEDICAID - [place] MEDICAID - OUT OF STATE Care Teams Set Up Mechanic Coil Winding Machines Relationship Specialty Start Date End Date Imtiaz Bennett MD [address] [place] [address] PCP - General Pediatrics 07/22/19
--- OUTSIDE RECORDS SUMMARY | 2025-04-29 05:08 | XMS_ITS | Clinical Summary ---
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 5 Active vitamin D3 (CHOLECALCIFEROL ) 25 mcg tablet Take 1 tablet (25 mcg total) by mouth daily. 4 Active fexofenadine (SANTINO) 60 MG tablet Take 1 tablet (60 mg total) by mouth 2 (two) times daily. Active escitalopram (LEXAPRO) 20 MG tabletIndication s:Routine general medical examination at a health care facility Take 1 tablet (20 mg total) by mouth daily. 90 tablet 3 5 11/12/19 26 Active drospirenone-eth inyl estradiol 3-0.02 MG tabletIndication s:Acne vulgaris Take 1 tablet by mouth daily. 90 tablet 3 5 11/12/19 26 Active tirzepatide (ZEPBOUND) 2.5 MG/0.5ML injectionIndicat ions:Weight Loss Inject 2.5 mg into the skin once a week. Indications: Weight Loss 6 mL 5 Active naltrexone-buPRO Pion ER (CONTRAVE) 12 hr tabletIndication s:Morbid obesity (CMS/HCC) Take 1 tablet by mouth 2 (two) times daily. 60 tablet 5 Active triamcinolone (KENALOG) 0.1 % creamIndications :Atopic dermatitis, unspecified type Apply topically 2 (two) times daily. Do not use on normal appearing skin, only on rash when present. 45 g 5 Active Active Problems Problem Noted Date Diagnosed Date MANUEL (generalized anxiety disorder) 11/11/2024 Overview (11/11/2024): Takes lexapro. Migraines 08/21/2018 Overview (11/11/2024): No aura. Takes excedrin. Works well. Morbid obesity 08/21/2018 Overview (11/11/2024): When 12, wanted to do gastric bypass. Has tried fasting. Improved diet. Aunt wants her to try zepbound. Breakfast skipped. Lunch is frozen meal, fast food or sub. Dinner is steak, potatoes. Works at [employer] so might eat there. Snacks- cereal, gold fish, pretzels. Drinks- soda usually 2 per day. Assessment & Plan (11/11/2024 2:40 PM CDT): Discussed dietary and lifestyle changes. Specifically recommended increasing high-fiber foods in the limiting soda, high saturated fat, simple carbohydrates. Specifically recommended incorporating oatmeal for breakfast, fruit and vegetables throughout the day and a serving of nuts (not peanut since she is allergic) to her diet. She is interested in Zepbound and confirmed with insurance that they do cover this medication. We will start 2.5 mg weekly. We discussed risks of medications. She has no history of pancreatitis or family history of thyroid cancers. She is aware there could be risks not yet known. She is aware that her oral contraceptive will not be as effective while she is on Zepbound. She uses oral contraceptive primarily for acne management and is not sexually active. She is willing to accept the risk. Acne 01/22/2014 Overview (11/11/2024): Takes OCP to help manage this. Atopic dermatitis 01/22/2014 Overview (11/11/2024): onset infancy controlled with mometasone as needed 01/22/14 clear 08/21/18 resolved Immunizations Immunization Administration Dates Next Due [id number]-BgfW-FIW (Pediarix) 06/22/2005,04/24/2005,0 02/22/2005 DTaP-IPV (Kinrix) 02/01/2010 Dtap (Acel-Immune) 01/29/2007 HPV GARDASIL 9-VALENT 12/28/2015 HPV4 (Gardasil) 05/27/2014 Hepatitis A (Generic) 12/10/2008,01/07/2008 Hepatitis B Pediatric 2004 Hib (Generic) 01/29/2007, 6,04/24/2005,02/09 Influenza (Generic) 03/20/2011 Influenza Adult (Generic) 06/20/2021,09/2019,04/04/2017,05/11,04/11/2013 MENINGOCOCCAL A C Y&W-135 oligosaccharide (MENVEO) 10/12/2021 MMR (MMRII) 02/01/2010,01/29/2007 Meningcoccal Group B (Bexser o)(aka Meningitis) 10/12/2021 Meningococcal (Menactra) 12/28/2015 Pneumococcal (Prevnar 7) 01/29/2007,06/11,04/24/2005,02/09 Tdap (Adacel) 11/11/2024 Tdap (Generic) 12/28/2015 Varicella (Varivax) 02/01/2010,12/26/2005 Family History Medical History Relation Comments No Known Problems Brother 1 No Known Problems Brother 2 No Known Problems Brother 3 No Known Problems Father estranged CHF Maternal Grandfather Diabetes Maternal Grandfather Hypertension Maternal Grandfather Ovarian Cancer Maternal Grandmother Asthma Mother Hypertension Mother No Known Problems Sister 1 No Known Problems Sister 2 Relation Status Comments Brother 1 Brother 2 Alive Brother 3 Alive Father Alive Maternal Grandfather Alive Maternal Grandmother Mother Alive Sister 1 Sister 2 Alive Social History Tobacco Use Types Packs/Day Years Used Date Smoking Tobacco: Never Smokeless Tobacco: Never Tobacco Cessation:Counseling Given: Yes Comments:Quit vaping Alcohol Use Standard Drinks/Week Comments Never 0 (1 standard drink = 0.6 oz pur e alcohol) PHQ-2 Answer Date Recorded Patient Health Questionnaire-2 Score 0 11/11/2024 Comments Unknown Sex and Gender Information Value Date Recorded Sex Assigned at Not on file Legal Sex Female 5:16 PM CDT Gender Identity Not on file Sexual Orientation Not on file Occupation Industry Job Start Date Job End Date [employer]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 Not on file Not on file No t on file Last Filed Vital Signs Vital Sign Reading Time Taken Comments Blood Pressure 135/87 11/11/2024 1:46 PM CDT Pulse 98 11/11/2024 1:10 PM CDT Temperature 36.4 C (97.6 F) 11/11/2024 1:10 PM CDT Respiratory Rate - - Oxygen Saturation 99% 11/11/2024 1:10 PM CDT Inhaled Oxygen Concentration - - Weight 148.4 kg (327 lb 3.2 oz) 025 1:10 PM CDT Height 165.1 cm (5' 5) 11/11/2024 1:10 PM CDT Body Mass Index 54.45 11/11/2024 1:10 PM CDT Plan of Treatment Upcoming Encounters Date Type Department Care Team (Late st Contact Info) Description 11/12/2025 1:00 PM CDT Office Visit [facility] Family Medicine - [place] [address] [place] [address] [phone] Aggie Sandoval MD [address] [place] [address] Health Maintenance Due Date Last Done Comments Meningococcal B Vaccine (2 of 2 - Bexsero SCDM 2-dose series) 04/14/2022 10/12/2021 Hepatitis C 2022 COVID-19 Vaccine ( season) 2025 07/19/2021, 06/20/2021 Influenza Adult (#1) 2025 06/20/2021, 04/14/2020, 04/04/2017, Additional history exists Annual Physical 11/11/2025 11/11/2024 DTaP, Tdap and Td Vaccines (8 - Td or Tdap) 11/11/2034 11/11/2024, 12/28/2015, 02/01/2010, Additional history exists Hepatitis B Vaccines Completed 06/22/2005, 04/24/2005, 02/22/2005, Additional history exists Pneumococcal Vaccine: Pediatrics (0 to 5 Years) and At-Risk Patients (6 to 49 Years) Aged Out 01/29/2007, 06/22/2005, 04/24/2005, Additional history exists No longer eligible based on patient's age to complete this topic Hepatitis A Vaccines Completed 12/10/2008, 01/07/20 08 HPV Vaccines Completed 12/28/2015, 05/27/2014 Meningococcal Vaccine Completed 10/12/2021, 016 PHQ-2 (Physician Chloride) Completed 11/11/2024 RSV Immunizations Under 20 Months Aged Out No longer eligible based on patient's age to complete this topic Insurance [place] [address] [id number] Care Teams Take Out Waitress Relationship Specialty Start Date End Date Aggie Sandoval MD [address] [place] [address] PCP - General FAMILY PRACTICE 11/11/24
== END 2025-04-29 03:23 | disposition home or self-care (01) ==
PROVIDERS: Emergency Provider Registered Nurse; PCP Student in an Organized Health Care Education/Training Program
DX: J40 Bronchitis, not specified as acute or chronic (principal); T50.905A Adverse effect of unspecified drugs, medicaments and biological substances, initial encounter; N30.00 Acute cystitis without hematuria; Z20.822 Contact with and (suspected) exposure to COVID-19; R00.0 Tachycardia, unspecified
CPT/HCPCS: 36415; 71046; 80053; 80307; 81001; 81025; 83605; 83735; 84443; 84484; 85025; 85380; 85610; 85730; 87086; 87637; 93005; 94640; 96361; 96374; 99284; A9270; J1885; J7030

== ENCOUNTER 2025-06-05 15:58 | Emergency (ER) | payer OTHER, SELFPAY ==
--- NOTE | ~2025-06-05 | XR_ITS ---
EXAMINATION: XR chest 2V 06/05/2025 16:39 INDICATION: Chest pain PROCEDURE: 2 view chest COMPARISON: 04/29/2025 FINDINGS: The lungs are clear. The cardiomediastinal silhouette is within normal limits. There are no pleural effusions. There is no pneumothorax suspected. IMPRESSION: 1: NO ACUTE CARDIOPULMONARY DISEASE. Reviewed, dictated and finalized at location O. TRUCK DRIVER
--- NOTE | 2025-06-05 16:00 | ECG_ITS ---
Test Date: 2025-06-05 16:49:06 Measurements Intervals [place] Rate: 126 P: 39 TN: 145 QRS: 12 QRSD: 69 T: 8 QT: 302 QTc: 438 Interpretive Statements SINUS TACHYCARDIA EARLY PRECORDIAL R/S TRANSITION NONSPECIFIC T-WAVE ABNORMALITY- INFERIOR LEADS BASELINE ARTIFACT- I, III, AVR, AVL ABNORMAL ECG Compared to ECG 04/29/2025 00:41:47 HEART RATE HAS INCREASED Electronically Signed On 06-05-2025 19:45:09 DIGITAL MARKETING MANAGER by Sushant Gonzalez D.O.
[2025-06-05 16:43] VITALS: BP 152/96; PULSE 126; RESP 16; TEMP 36.6; O2SAT 99
--- NOTE | 2025-06-05 16:57 | ED.CHESTPAIN ---
HPI - Chest Pain General Chief Complaint: Chest Pain <Velma Todd APRN - Last Filed: 06/05/25 17:00> Stated Complaint: chest pain <Velma Todd APRN - Last Filed: 06/05/25 17:00> Time Seen by Provider: 06/05/25 16:57 <Velma Todd APRN - Last Filed: 06/05/25 17:00> Focused HPI: Patient is a 19-year-old female who presents to the ER with palpitations and shortness of breath. She reports she went to urgent care earlier today and was diagnosed with the flu. Patient reports she took her 1st dose of Tamiflu and started experiencing heart palpitations and shortness a breath shortly afterwards. She reports she has taken Mucinex to help treat her symptoms. Patient reports her blood pressure has also been elevated today. She endorses a history of tonsillectomy/adenoidectomy. Patient denies any back pain, chest pain, or acute back pain. GENERAL: Ill-appearing, obese, and in no acute distress. HEAD: Normocephalic, atraumatic. CHEST: Clear to auscultation. ?No respiratory distress. HEART: Tachycardia NEURO: ?Alert and oriented x3. Patient screened in triage and initial orders placed.? ?Additional care and disposition to be based upon?diagnostic testing and treatment. <Velma Todd APRN - Last Filed: 06/05/25 17:00> History of Present Illness HPI narrative: Agree with HPI <Altaf Jones DO - Last Filed: 06/05/25 21:46> Related Data Home Medications: Home Medications ?Medication ?Instructions ?Recorded ?Confirmed ?Last Taken ?Type drospirenone 3 mg-ethinyl 1 tablet PO DAILY 11/03/21 03/30/24 Unknown History estradiol 0.02 mg tablet escitalopram oxalate 20 mg tablet 20 mg PO DAILY 01/19/24 03/30/24 Unknown History levocetirizine 5 mg tablet (Xyzal) 2.5 mg PO 2XW 04/27/25 04/27/25 Unknown History <Velma Todd APRN - Last Filed: 06/05/25 17:00> Allergies/Adverse Reactions: Allergies Allergy/AdvReac Type Severity Reaction Status Date / Time peanut Allergy Severe ANAPHALAXIS Verified 04/28/25 22:06 loratadine (From Claritin) Allergy Mild Rash Verified 04/28/25 22:06 Penicillins Allergy Mild HIVES/ITCHI Verified 04/28/25 22:06 NG prednisone Allergy Mild tachycardia Verified 06/05/25 20:20 <Velma Todd APRN - Last Filed: 06/05/25 17:00> Review of Systems Review of Systems: All systems reviewed & are unremarkable except as noted in HPI and below <Altaf Jones DO - Last Filed: 06/05/25 21:46> [facility] Past Medical History Medical History: Medical History History of sinus problem History of strep sore throat Eczema <Velma Todd APRN - Last Filed: 06/05/25 17:00> Surgical History Surgical History: Surgical History History of tonsillectomy and adenoidectomy <Velma Todd APRN - Last Filed: 06/05/25 17:00> Family History Family History: Family History Grandparent Hypertension Heart disease <Velma Todd APRN - Last Filed: 06/05/25 17:00> Social History Social History: Social History Smoking status: Never smoker Alcohol intake: never Substance use: never Living arrangements: with family Occupation/Education: student Gender identity (if verbalized by the patient): Female <Velma Todd APRN - Last Filed: 06/05/25 17:00> Exam Narrative: APPEARANCE: No acute distress, nontoxic, resting in bed EYES: EOMI HEENT: Normocephalic, atraumatic, OMM RESPIRATORY: Mildly tachypneic, Clear to auscultation bilaterally with no rhonchi wheezing or rales. CARDIOVASCULAR: Tachycardic with regular rhythm without murmurs rubs or gallops. ABDOMINAL: Soft, nontender, nondistended, no rebound or guarding MUSCULOSKELETAl: Moves all extremities. No clubbing, cyanosis or edema. NEURO: Awake and alert. Following commands, speech normal, no focal deficits SKIN:: Warm, dry. No rashes lesions or abrasions PSYCHIATRIC: Normal affect/mood, <Altaf Jones DO - Last Filed: 06/05/25 21:46> Course Vital Signs Vital signs: Vital Signs Temperature 97.8 F 06/05/25 16:43 Pulse Rate 126 H 06/05/25 16:43 Respiratory Rate 16 06/05/25 16:43 Blood Pressure 152/96 H 06/05/25 16:43 Pulse Oximetry 99 06/05/25 16:43 Oxygen Delivery Room Air 06/05/25 16:43 Temperature 97.8 F 06/05/25 16:43 Pulse Rate 120 H 06/05/25 20:21 Respiratory Rate 26 H 06/05/25 20:21 Blood Pressure 149/103 H 06/05/25 20:21 Pulse Oximetry 98 06/05/25 20:21 Oxygen Delivery Room Air 06/05/25 20:21 <Velma Todd, LIMB DRIVER - Last Filed: 06/05/25 17:00> Vital Signs Temperature 97.8 F 06/05/25 16:43 Pulse Rate 126 H 06/05/25 16:43 Respiratory Rate 16 06/05/25 16:43 Blood Pressure 152/96 H 06/05/25 16:43 Pulse Oximetry 99 06/05/25 16:43 Oxygen Delivery Room Air 06/05/25 16:43 Temperature 97.8 F 06/05/25 16:43 Pulse Rate 120 H 06/05/25 20:21 Respiratory Rate 26 H 06/05/25 20:21 Blood Pressure 149/103 H 06/05/25 20:21 Pulse Oximetry 98 06/05/25 20:21 Oxygen Delivery Room Air 06/05/25 20:21 <Altaf Jones DO - Last Filed: 06/05/25 21:46> [facility] MDM Narrative Medical decision making narrative: 19-year-old female Presenting for chest pain and shortness of breath. On initial evaluation patient was in no acute distress afebrile. Tachycardic to the 120s and tachypneic. Differentials include but are not limited to: ACS, CHF Exacerbation, COPD exacerbation, PE, PNA, PTX, bronchitis, viral syndrome Notable exam findings: Tachycardic and mildly tachypneic, but no respiratory distress heart and lungs otherwise clear. I personally reviewed the patient's lab result. Notable lab findings: CBC without significant abnormalities. CMP without significant abnormalities. D-dimer 0.5. I personally reviewed the patient's images and interpret as follows: Chest x-ray: Normal cardiac silhouette, no consolidations, no pleural effusions, no pulmonary vascular congestion I personally reviewed the patient's EKGs: Sinus tachycardia rate of 126, normal axis, normal intervals, no acute ST or T-wave changes By YEARS criteria, PE is ruled on in this patient with D dimer 0.5. Suspect that her symptoms are most likely due to influenza. Discussed that she may continue to take the Tamiflu if she desires but it is okay for her to not take at this time as it only decreases her symptoms by 12 hours. Patient stated that she would think about this when she gets home. She was given a prescription for albuterol inhaler in case she needs it. Patient was agreeable to this plan. Given strict return precautions. <Altaf Jones DO - Last Filed: 06/05/25 21:46> Differential Diagnosis Differential Diagnosis: ACS, CHF Exacerbation, COPD exacerbation, PE, PNA, PTX, bronchitis, viral syndrome <Altaf Jones DO - Last Filed: 06/05/25 21:46> Lab Data Result diagrams: 06/05/25 17:04 06/05/25 17:04 <Velma Todd APRN - Last Filed: 06/05/25 17:00> Labs: Lab Results 06/05/25 06/05/25 Range/Units 17:04 20:38 WBC 8.7 (4.5-10.0) K/mm3 RBC 5.44 H (4.2-5.4) M/mm3 Hgb 13.0 (12.0-15.0) g/dL Hct 41.3 (37.0-47.0) % MCV 75.9 L (80-100) fl MCH 23.9 L (26-34) pg MCHC 31.5 L (32-36) g/dl RDW 15.2 H (11.5-14.5) % Plt Count 345 (150-375) k/mm3 MPV 9.7 (7.4-10.4) fl Immature Gran % (Auto) 0.3 (0-0.5) % Neut % (Auto) 83.9 H (45.5-73.1) % Lymph % (Auto) 8.6 L (18.3-44.2) % [place] % (Auto) 6.1 (2.6-8.5) % Eos % (Auto) 0.9 (0-4.4) % Baso % (Auto) 0.2 (0.2-1.2) % Lymph # (Auto) 0.74 L (0.9-3.2) K/mm3 [place] # (Auto) 0.5 (0.1-0.6) K/mm3 Eos # (Auto) 0.1 (0-0.3) K/mm3 Baso # (Auto) 0.0 (0.0-0.1) K/mm3 Abs Immat Gran (auto) 0.03 (0.00-0.031) K/mm3 Absolute Neuts (auto) 7.3 H (1.3-6.7) K/mm3 Absolute Nucleated RBC 0.000 (0.0-0.012) K/mm3 Nucleated RBC % 0.0 (0.0-0.2) % PT 14.3 (11.1-14.7) Seconds INR 1.1 APTT 26.9 (22.3-36.8) Seconds D-Dimer 0.50 H (<0.48) ug/mL Sodium 135 L (137-145) mmol/L Potassium 3.8 (3.4-5.0) mmol/L Chloride 102 (98-107) mmol/L Carbon Dioxide 21 L (22-30) mmol/L Anion Gap 12 (4-12) mmol/L BUN 11 (7-17) mg/dL Creatinine 0.57 L (0.7-1.0) mg/dL Estim Creat Clear Calc 184 ml/min Estimated GFR > 60 (59 - ) Glucose 101 (65-110) mg/dL Calcium 10.0 (8.4-10.2) mg/dL Total Bilirubin 0.4 (0.2-1.3) mg/dL AST 23 (14-36) U/L ALT 31 (6-35) U/L Alkaline Phosphatase 118 (38-126) U/L Troponin I < 0.012 < 0.012 (0.000-0.034) ng/mL Total Protein 8.5 H (6.3-8.2) g/dL Albumin 4.8 (3.5-5.1) g/dL Lipase 59 (23-300) U/L <Velma Todd, LIMB DRIVER - Last Filed: 06/05/25 17:00> Lab Results 06/05/25 06/05/25 Range/Units 17:04 20:38 WBC 8.7 (4.5-10.0) K/mm3 RBC 5.44 H (4.2-5.4) M/mm3 Hgb 13.0 (12.0-15.0) g/dL Hct 41.3 (37.0-47.0) % MCV 75.9 L (80-100) fl MCH 23.9 L (26-34) pg MCHC 31.5 L (32-36) g/dl RDW 15.2 H (11.5-14.5) % Plt Count 345 (150-375) k/mm3 MPV 9.7 (7.4-10.4) fl Immature Gran % (Auto) 0.3 (0-0.5) % Neut % (Auto) 83.9 H (45.5-73.1) % Lymph % (Auto) 8.6 L (18.3-44.2) % [place] % (Auto) 6.1 (2.6-8.5) % Eos % (Auto) 0.9 (0-4.4) % Baso % (Auto) 0.2 (0.2-1.2) % Lymph # (Auto) 0.74 L (0.9-3.2) K/mm3 [place] # (Auto) 0.5 (0.1-0.6) K/mm3 Eos # (Auto) 0.1 (0-0.3) K/mm3 Baso # (Auto) 0.0 (0.0-0.1) K/mm3 Abs Immat Gran (auto) 0.03 (0.00-0.031) K/mm3 Absolute Neuts (auto) 7.3 H (1.3-6.7) K/mm3 Absolute Nucleated RBC 0.000 (0.0-0.012) K/mm3 Nucleated RBC % 0.0 (0.0-0.2) % PT 14.3 (11.1-14.7) Seconds INR 1.1 APTT 26.9 (22.3-36.8) Seconds D-Dimer 0.50 H (<0.48) ug/mL Sodium 135 L (137-145) mmol/L Potassium 3.8 (3.4-5.0) mmol/L Chloride 102 (98-107) mmol/L Carbon Dioxide 21 L (22-30) mmol/L Anion Gap 12 (4-12) mmol/L BUN 11 (7-17) mg/dL Creatinine 0.57 L (0.7-1.0) mg/dL Estim Creat Clear Calc 184 ml/min Estimated GFR > 60 (59 - ) Glucose 101 (65-110) mg/dL Calcium 10.0 (8.4-10.2) mg/dL Total Bilirubin 0.4 (0.2-1.3) mg/dL AST 23 (14-36) U/L ALT 31 (6-35) U/L Alkaline Phosphatase 118 (38-126) U/L Troponin I < 0.012 < 0.012 (0.000-0.034) ng/mL Total Protein 8.5 H (6.3-8.2) g/dL Albumin 4.8 (3.5-5.1) g/dL Lipase 59 (23-300) U/L <Altaf Jones DO - Last Filed: 06/05/25 21:46> Imaging Data Radiologist's impression: ITS Impressions Chest X-Ray 06/05/25 16:39 IMPRESSION: 1: NO ACUTE CARDIOPULMONARY DISEASE. <Velma Todd APRN - Last Filed: 06/05/25 17:00> ITS Impressions Chest X-Ray 06/05/25 16:39 IMPRESSION: 1: NO ACUTE CARDIOPULMONARY DISEASE. <Altaf Jones DO - Last Filed: 06/05/25 21:46> Discharge Plan Discharge Clinical Impression: Influenza <Velma Todd APRN - Last Filed: 06/05/25 17:00> Patient Disposition: Home <Velma Todd APRN - Last Filed: 06/05/25 17:00> Condition: Stable <Velma Todd APRN - Last Filed: 06/05/25 17:00> Instructions: Antibiotic Form, Influenza (ED) <Velma Todd APRN - Last Filed: 06/05/25 17:00> Additional Instructions: Your symptoms are most likely due to the flu. Tamiflu may have caused similar symptoms so you can stop taking this if you would like. Follow-up with your PCP in the next week for re-evaluation. Return to the ED for any new or worsening symptoms. For pain, discomfort or temperature greater than or equal to 100.8 ?F please alternate the following 2 medications as needed. First medication- acetaminophen/Tylenol- 1000mg every 6-8 hours as needed for above indications. Second medication- ibuprofen/Motrin-600mg every 6-8 hours as needed for above indication. <Velma Todd APRN - Last Filed: 06/05/25 17:00> Patient Language: Ukrainian <Velma Todd APRN - Last Filed: 06/05/25 17:00> Prescriptions: New albuterol sulfate [Ventolin HFA] 90 mcg/actuation HFA aerosol inhaler 1 inh inhalation QID PRN (Reason: shortness of breath or wheezing) Qty: 8.5 0RF No Action drospirenone-ethinyl estradiol 3-0.02 mg tablet 1 tablet PO DAILY escitalopram oxalate 20 mg tablet 20 mg PO DAILY levocetirizine [Xyzal] 5 mg tablet 2.5 mg PO 2XW prednisone 50 mg tablet 50 mg PO DAILY 5 Days Qty: 5 0RF albuterol sulfate [Ventolin HFA] 90 mcg/actuation HFA aerosol inhaler 1 inh inhalation QID PRN (Reason: shortness of breath or wheezing) Qty: 6.7 0RF methylprednisolone [Medrol (Juwan)] 4 mg tablets,dose pack See Rx Instructions .ROUTE .COMPLEX Qty: 21 0RF Rx Instructions: for 6 days cetirizine [24Hour Allergy] 10 mg tablet 10 mg PO DAILY PRN (Reason: allergy symptoms) Qty: 30 0RF fluticasone propionate [Flonase Allergy Relief] 50 mcg/actuation spray,suspension 2 spray intranasal DAILY Qty: 16 0RF Rx Instructions: administer into each nostril nitrofurantoin monohyd/m-cryst [Macrobid] 100 mg capsule 100 mg PO Q12H 5 Days Qty: 10 0RF Rx Instructions: must administer with a meal/food <Velma Todd, VANDANA - Last Filed: 06/05/25 17:00> Follow-up/Referrals: Lori,Aggie Leo MD [Primary Care Provider, Unknown] <Velma Todd, VANDANA - Last Filed: 06/05/25 17:00>
[2025-06-05 17:10] LABS: Hematocrit 41.3 % (37.0-47.0); Hemoglobin 13.0 g/dL (12.0-15.0); Immature Granulocyte Percent A 0.3 % (0-0.5); Lymphocytes Absolute Auto 0.74 K/mm3 (0.9-3.2); Mean Corpuscular HGB Conc 31.5 g/dl (32-36); Mean Corpuscular Hemoglobin 23.9 pg (26-34); Mean Corpuscular Volume 75.9 fl (80-100); Nucleated Red Blood Cells Absolute Auto 0.000 K/mm3 (0.0-0.012); Nucleated Red Blood Cells Perc 0.0 % (0.0-0.2); Platelet Count Result 345 k/mm3 (150-375); Red Blood Count 5.44 M/mm3 (4.2-5.4); White Blood Count 8.7 K/mm3 (4.5-10.0)
[2025-06-05 17:24] LABS: Alanine Aminotransferase 31 U/L (6-35); Albumin Level 4.8 g/dL (3.5-5.1); Alkaline Phosphatase 118 U/L (38-126); Anion Gap 12 mmol/L (4-12); Aspartate Amino Transferase 23 U/L (14-36); Bilirubin,Total 0.4 mg/dL (0.2-1.3); Blood Urea Nitrogen 11 mg/dL (7-17); Calcium 10.0 mg/dL (8.4-10.2); Carbon Dioxide 21 mmol/L (22-30); Chloride 102 mmol/L (98-107); Estimated CRCL calculation 184 ml/min; Estimated Glomerular Filt Rate > 60; Glucose 101 mg/dL (65-110); Lipase 59 U/L (23-300); Potassium 3.8 mmol/L (3.4-5.0); Sodium 135 mmol/L (137-145); Total Protein 8.5 g/dL (6.3-8.2)
[2025-06-05 17:27] LABS: INR 1.1; Prothrombin Time 14.3 Seconds (11.1-14.7)
[2025-06-05 17:28] LABS: Partial Thromboplastin Time 26.9 Seconds (22.3-36.8)
[2025-06-05 17:36] LABS: Troponin I < 0.012 ng/mL (0.000-0.034)
[2025-06-05 20:18] VITALS: O2SAT 99
[2025-06-05 20:21] VITALS: BP 149/103; PULSE 120; RESP 26; O2SAT 98
[2025-06-05] MEDS: KETOROLAC 30 MG/ML VIAL (*BKC) IV PUSH (21:01)
[2025-06-05] MEDS: SODIUM CHLORIDE 0.9% IV 1,000 ML 999 ML IV CONT (21:01)
[2025-06-05] MEDS: ALBUTEROL SULFATE (*SP) AEROSOL 1 PUFF 2 PUFF INHALATION (21:29)
[2025-06-05 21:36] LABS: Troponin I < 0.012 ng/mL (0.000-0.034)
== END 2025-06-05 22:24 | disposition home or self-care (01) ==
PROVIDERS: Emergency Medicine; Emergency Provider Student in an Organized Health Care Education/Training Program; PCP Student in an Organized Health Care Education/Training Program
DX: J11.1 Influenza due to unidentified influenza virus with other respiratory manifestations (principal)
CPT/HCPCS: 36415; 71046; 80053; 83690; 84484; 85025; 85380; 85610; 85730; 93005; 94664; 96361; 96374; 99284; A9270; J1885; J7030